=== PATIENT | male | born 1970 | race Caucasian/White ===

== ENCOUNTER 2018-05-17 19:06 | Inpatient (IN) | payer MEDICAID ==
[2014-09-19 07:59] VITALS: BMI 29.5
--- NOTE | 2018-05-17 20:07 | C.PDOC ---
History Of Present Illness 47 y/o male, with history of heroin and methadone use, presents to the ED for psychiatric evaluation. Patient states he stopped using heroin several years ago but relapsed and started using again over the past month. Patient states he is feeling depressed since he relapsed and is requesting detox. Patient denies suicidal ideation/plan or any hallucination at this time. Chief Complaint (Nursing): Psychiatric Evaluation History Per: Patient History/Exam Limitations: no limitations Onset/Duration Of Symptoms: Days Current Symptoms Are (Timing): Still Present Modifying Factor(s): Other (heroin ) Associated Symptoms: denies: Suicidal Thoughts, Suicidal Plan Involuntary Hold By: None Recent travel outside of the [place]: No Additional History Per: Patient Past Medical History Reviewed: Historical Data, Nursing Documentation, Vital Signs Vital Signs: Last Vital Signs Temp 98.7 F 05/17/18 19:26 Pulse 92 H 05/17/18 19:26 Resp 22 05/17/18 19:26 BP 139/94 H 05/17/18 19:26 Pulse Ox 99 05/17/18 19:26 - Medical History PMH: Anxiety, Arthritis, Asthma, Depression, Rheumatoid Arthritis, Sleep Apnea (Uses Cpap for sleep apnea) Denies: Chronic Kidney Disease Surgical History: No Surg Hx - [facility] Procedures CLOSURE SKIN & SUBCUTANEOUS NEC (12/21/12) SPINAL TAP (01/23/13) TETANUS TOXOID ADMINIST (12/21/12) Family History: States: Unknown Family Hx - Social History Hx Tobacco Use: No Hx Alcohol Use: No Hx Substance Use: No - Immunization History Hx Tetanus Toxoid Vaccination: Yes Hx Influenza Vaccination: No Hx Pneumococcal Vaccination: No Review Of Systems Constitutional: Negative for: Fever, Chills Cardiovascular: Negative for: Chest Pain Respiratory: Negative for: Shortness of Breath Gastrointestinal: Negative for: Nausea, Vomiting, Abdominal Pain Skin: Negative for: Rash Psych: Positive for: Depression, Other (heroin detox ). Negative for: Suicidal ideation Physical Exam - Physical Exam Appears: Non-toxic, No Acute Distress Skin: Normal Color, Warm, Dry Head: Atraumatic, Normacephalic Eye(s): bilateral: Normal Inspection, PERRL Ear(s): Bilateral: Normal Oral Mucosa: Moist Tongue: Normal Appearing Neck: Normal ROM, Supple Chest: Symmetrical Cardiovascular: Rhythm Regular Respiratory: Normal Breath Sounds, No Accessory Muscle Use Gastrointestinal/Abdominal: Soft, No Tenderness Back: No CVA Tenderness Extremity: Normal ROM Extremity: Left: Normal Color And Temperature, Normal ROM, Bilateral: Atraumatic Neurological/Psych: Oriented x3, Normal Speech, Normal Cognition, Normal Motor, Normal Sensation Gait: Steady ED Course And Treatment - Laboratory Results Result Diagrams: 05/17/18 22:01 05/17/18 22:01 O2 Sat by Pulse Oximetry: 99 (on RA) Pulse Ox Interpretation: Normal Medical Decision Making Medical Decision Making: Progress: Case discussed with warehouse production worker, who will evaluate the patient at bedside and inquire about detox beds. Patient was interviewed by Crisis and is approved for admission. Disposition Counseled Patient/Family Regarding: Studies Performed, Diagnosis, Need For F ollowup - Disposition Disposition: HOSPITALIZED Disposition Time: 23:15 Condition: STABLE Forms: [facility] ([place]an) - Clinical Impression Clinical Impression: Opioid use disorder - PA / CPR AMBULANCE DRIVER / Resident Statement MD/DO has reviewed & agrees with the documentation as recorded. - Scribe Statement The provider has reviewed the documentation as recorded by the Scribe (Lexi Calderon) All medical record entries made by the Scribe were at my direction and personally dictated by me. I have reviewed the chart and agree that the record accurately reflects my personal performance of the history, physical exam, medical decision making, and the department course for this patient. I have also personally directed, reviewed, and agree with the discharge instructions and disposition. Decision To Admit - Pt Status Changed To: Hospital Disposition Of: Inpatient - Admit Certification Admit to Inpatient:: After my assessment, the patient will require hospitalizati on for at least two midnights. This is because of the severity of symptoms shown, intensity of services needed, and/or the medical risk in this patient being treated as an outpatient. - InPatient: Physician Admission Certification: I certify that this patient requires 2 or more midnights of care for the following reason:: this patient will require more than 2 nights for detox - . Bed Request Type: Detox Admitting Physician: Brandon Mancera Patient Diagnosis: Opioid use disorder
[2018-05-17 22:05] LABS: MEAN CELL VOLUME 80.8 fL (80.0-94.0); MEAN CORPUSCULAR HEMOGLOBIN 26.8 pg (27.0-31.0); MEAN CORPUSCULAR HGB CONC 33.1 g/dL (33.0-37.0); MEAN PLATELET VOLUME 7.7 fL (7.2-11.7); RBC 5.29 Mil/uL (4.40-5.90); RED CELL DISTRIBUTION WIDTH 14.5 % (11.5-14.5); WHITE BLOOD COUNT 5.4 K/uL (4.8-10.8)
[2018-05-17 22:10] LABS: HEMOGLOBIN 14.2 g/dL (12.0-18.0)
[2018-05-17 22:21] LABS: ALB/GLOB RATIO 1.4 (1.0-2.1); ALBUMIN 4.8 g/dL (3.5-5.0); ALT/SGPT 27 U/L (21-72); AST/SGOT 30 U/L (17-59); BLOOD UREA NITROGEN 15 mg/dL (9-20); CALCIUM 9.7 mg/dl (8.6-10.4); GFR NON-AFRICAN AMERICAN > 60
[2018-05-17 22:34] LABS: BARBITURATES, UR NEGATIVE (NEGATIVE)
[2018-05-17 22:38] LABS: BENZODIAZEPINES, UR POSITIVE (NEGATIVE); OPIATES, UR POSITIVE (NEGATIVE)
[2018-05-17 23:11] LABS: PHENCYCLIDINE, UR NEGATIVE (NEGATIVE)
[2018-05-18] MEDS ORDERED: Aluminum Hydroxide/Magnesium Hydroxide Susp (30 mL) PO PRN (00:43)
--- NOTE | 2018-05-18 01:17 | PCM.BM ---
<Guevara Watkins - Last Filed: 05/18/18 01:15> Treatment Plan Problems - Problems identified on initial assessmt Problem 1 Date Initiated: 05/18/18 Time Initiated: 01:15 Assessment reference: NA Status: Active Priority: 1 Comment: Defensive Coping Problem 2 Date Initiated: 05/18/18 Time Initiated: 01:16 Assessment reference: NA Status: Active Priority: 2 Comment: Denial Treatment assets and liabiliti Patient Assests: cooperative, ADL independent Patient Liabilities: poor support system, substance abuse - Milieu Protocol Maintain good personal hygiene: daily Encourage regular showers, daily Remind patient to perform daily oral care Conduct patient checks and document Observation sheet: Q15 minutes Maintain personal safety: every shift Educate patient to report safety concerns to staff, every shift Monitor environment for contraband/sharps Medication safety: Monitor for expected outcome, potential side effects: every shift, Assess barriers to learning: every shift, Assess readiness for medication education: every shift <Shyla Olea - Last Filed: 05/19/18 11:19> Family Contact Family involvement: Famliy/SO not involved - Goals for Treatment Patient goals for treatment: COMPLETE DETOX AND APPLY FOR SHORT-TERM REHAB. Discharge/Continuing Care - Education Needs Education Needs: Patient Medication, Patient Diagnosis/Disease Process, Patient Coping Skills, Patient Anger Management skills, Patient Placement options, Patient Community resources - Discharge Discharge Criteria: No longer exhibiting s/s of withdrawal, Reduction of target symptoms Discharge to:: Substance Abuse Rehab - Treatment Team Participation Patient/Family/SO Statement: 05/19/18 11:18 "AFTER THIS, I WANNA GO TO SHORT-TERM..." Discussed with Family/SO: No Was Patient/Family/SO present at Treatment Team Meeting: Yes
--- NOTE | 2018-05-18 09:49 | PCM.PSYCH ---
Initial Psychiatric Evaluation - Initial Psychiatric Evaluation Type of Admission: Voluntary Legal Status: Capacity Chief Complaint (in patient's own words): "I need help" History of Present Illness and Precipitating Events: Pt is seen, chart reviewed and case discussed. 47 year old disabled male with 2 (adult children). Lives at home with his girlfriend. Pt currently uses 10-12 bags of Heroin (IV) per day. He last used yesterday at 4:00 PM. He currently feels anxious, confused, and disappointed in himself. Pt states that he recently dropped out of the methadone maintenance program. Pt had left over 1 methadone bottle at home and has been taking them, using heroin and methadone in the same time period. He ran out recently. Pt left the program 2 months ago. States that he relapsed after completing the program. States that he has been to detox 4 times and rehab 5 times over the past 20 years. The longest time the patient has been able to remain clean was 5 years. He has overdosed 2-3 times in his early 20s. Currently denies SI and HI but feels depressed. Psych HX: Depression and Anxiety- non compliant with medications Fam Psych Hx: Father- cocaine Medical Hx: RA, HEP- C , sarcoidosis Social:, takes girlfriend's klonopin Trauma: of family and friends Current Medications: Active Medications Generic Name Dose Route Start Last Admin Trade Name Freq PRN Reason Stop Dose Admin Al Hydrox/Mg Hydrox/Simethicone 30 ml 05/18/18 00:43 Maalox 30 Ml PO TID PRN Indigestion / Heartburn Clonidine HCl 0.1 mg 05/18/18 00:43 Catapres PO Q4 PRN COWS Score More or Equal to 5 Hydroxyzine HCl 50 mg 05/18/18 00:45 Atarax PO Q6H PRN Anxiety Ibuprofen 600 mg 05/18/18 00:43 Motrin Tab PO Q6 PRN Pain, moderate (4-7) Loperamide HCl 2 mg 05/18/18 00:43 Imodium PO Q8 PRN Diarrhea Trazodone HCl 50 mg 05/18/18 00:45 Desyrel PO HS PRN Insomnia Past Psychiatric History - Past Psychiatric History Pertinent Medical Hx (Current Medical&Sleep Prob, Allergies): Allergies Allergy/AdvReac Type Severity Reaction Status Date / Time Penicillins Allergy Mild Verified 05/17/18 19:30 Review of Systems - Psychiatric Psychiatric: Abnormal Sleep Pattern, Anhedonia, Anxiety, Depression, Difficulty Concentrating. absent: Hallucinations, Homicidal Ideation, Suicidal Ideation Mental Status Examination - Personal Presentation Personal Presentation: Looks stated age - Affect Affect: Constricted - Motor Activity Motor Activity: Calm - Reliability in Providing Information Reliability in Providing Information: Good - Speech Speech: Organized - Mood Mood: Depressed, Anxious - Formal Thought Process Formal Thought Process: No Impairment - Cognitive Functions Orientation: Person, Place, Situation, Time Sensorium: Alert Attention/Concentration: Attentive Judgement: Imparied, as evidence by: Lack of insight into illness, Intact, as evidence by: Insight regarding need for hospitalization Memory: Recent intact, as evidence by: Ability to recall events of the day, Remote intact, as evidenced by: Ability to recall historical events - Risk Risk: Withdrawal, Diminished functioning - Strength & Assets Inventory Strength & Assets Inventory: Cooperative - Limitations Limitations: Other DSM 5 DX - DSM 5 DSM 5 Diagnosis: Opioid withdrawal Opioid use d/o - severe Depressive d/o - unspecified - Recommended/Plan of Treatment Treatment Recommendations and Plan of Treatment: Taper with methadone Remeron for depression Gabapentin for augmentation if needed As needed medications All risks, benefits and alternatives of the meds discussed, and the pt agreed and understood. Attend groups and activities Supportive therapy and psychoeducation [place] for abstinence CBT for relapse prevention Encourage MAT Refer to rehab or IOP, and self-help groups Teach healthy lifestyle methods, i.e. diet, exercise, meditation Smoking cessation with [place] Nicotine patch if needed 34 min Projected ELOS: 4 days
--- NOTE | 2018-05-19 12:50 | PCM.PYCHPN ---
Psychiatric Progress Note - Psychiatric Progress Note Patient seen today, length of contact: 16 min Patient Chief Complaint: "I feel sick" Problems Identified/Issues Discussed: The pt is seen, chart reviewed, case discussed with staff. The pt is compliant with medications and reports no side-effects. Symptoms are improving but needs more time to stabilize. Pt attends groups and activities. Support given, psycho-education provided. After care discussed. Medication Change: Yes (detox changes daily) Medical Record Reviewed: Yes Mental Status Examination - Cognitive Function Orientation: Person, Place, Situation, Time Memory: Intact Attention: WNL Concentration: Poor Association: WNL Fund of Knowledge: WNL - Mood Mood: Depressed, Anxious - Affect Affect: Constricted - Speech Speech: Appropriate - Formal Thought Process Formal Thought Process: No Impairment - Suicidal Ideation Suicidal Ideation: No - Homicidal Ideation Homicidal Ideation: No Goal/Treatment Plan - Goal/Treatment Plan Need for Continued Stay: Discharge may exacerbated symptoms, Severe functional impairment Progress Toward Problem(s) and Goals/Treatment Plan: Taper with methadone Remeron for depression Gabapentin for augmentation if needed As needed medications All risks, benefits and alternatives of the meds discussed, and the pt agreed and understood. Attend groups and activities Supportive therapy and psychoeducation [place] for abstinence CBT for relapse prevention Encourage MAT Refer to rehab or IOP, and self-help groups Teach healthy lifestyle methods, i.e. diet, exercise, meditation Smoking cessation with [place] Nicotine patch if needed
--- NOTE | 2018-05-20 12:19 | PCM.PYCHPN ---
Psychiatric Progress Note - Psychiatric Progress Note Patient seen today, length of contact: 16 min Patient Chief Complaint: "I feel sick" Problems Identified/Issues Discussed: The pt is seen, chart reviewed, case discussed with staff. The pt is compliant with medications and reports no side-effects. Symptoms are improving but needs more time to stabilize. Pt attends groups and activities. Support given, psycho-education provided. After care discussed. Medication Change: Yes (detox changes daily) Medical Record Reviewed: Yes Mental Status Examination - Cognitive Function Orientation: Person, Place, Situation, Time Memory: Intact Attention: WNL Concentration: Poor Association: WNL Fund of Knowledge: WNL - Mood Mood: Depressed, Anxious - Affect Affect: Constricted - Speech Speech: Appropriate - Formal Thought Process Formal Thought Process: No Impairment - Suicidal Ideation Suicidal Ideation: No - Homicidal Ideation Homicidal Ideation: No Goal/Treatment Plan - Goal/Treatment Plan Need for Continued Stay: Discharge may exacerbated symptoms, Severe functional impairment Progress Toward Problem(s) and Goals/Treatment Plan: Taper with methadone Remeron for depression Gabapentin for augmentation if needed As needed medications All risks, benefits and alternatives of the meds discussed, and the pt agreed and understood. Attend groups and activities Supportive therapy and psychoeducation [place] for abstinence CBT for relapse prevention Encourage MAT Refer to rehab or IOP, and self-help groups Teach healthy lifestyle methods, i.e. diet, exercise, meditation Smoking cessation with [place] Nicotine patch if needed
--- NOTE | 2018-05-21 09:00 | PCM.PYCHDC ---
Mental Status Examination - Mental Status Examination Orientation: Person Discharge Summary - Discharge Note Consultations:: List each consultation separately and include: 1. Reason for request. 2. Findings. 3. Follow-up Summary of Hospital Course include:: 1. Description of specific treatment plan utilized for patients during their course of treatmen. 2. Summarize the time- course for resolution of acute symptoms and/or regressed behaviors. 3. Describe issues identified and worked on during hospitalization. 4. Describe medication utilized. 5. Describe medical problems identified and treated. 6. Reassessment of suicide risk Summary of Hospital Course: Pt is seen, chart reviewed and case discussed. 47 year old disabled male with 2 (adult children). Lives at home with his girlfriend. Pt currently uses 10-12 bags of Heroin (IV) per day. He last used yesterday at 4:00 PM. He currently feels anxious, confused, and disappointed in himself. Pt states that he recently dropped out of the methadone maintenance program. Pt had left over 1 methadone bottle at home and has been taking them, using heroin and methadone in the same time period. He ran out recently. Pt left the program 2 months ago. States that he relapsed after completing the program. States that he has been to detox 4 times and rehab 5 times over the past 20 years. The longest time the patient has been able to remain clean was 5 years. He has overdosed 2-3 times in his early 20s. Currently denies SI and HI but feels depressed. Psych HX: Depression and Anxiety- non compliant with medications Fam Psych Hx: Father- cocaine Medical Hx: RA, HEP- C , sarcoidosis Social:, takes girlfriend's klonopin Trauma: of family and friends Pt was not interested in anything - Final Diagnosis (DSM 5) Condition upon Discharge: STABLE Disposition: HOME/ ROUTINE Follow-up Treatment Plan: Taper with methadone Remeron for depression Gabapentin for augmentation if needed As needed medications All risks, benefits and alternatives of the meds discussed, and the pt agreed and understood. Attend groups and activities Supportive therapy and psychoeducation [place] for abstinence CBT for relapse prevention Encourage MAT Refer to rehab or IOP, and self-help groups Teach healthy lifestyle methods, i.e. diet, exercise, meditation Smoking cessation with [place] Nicotine patch if needed
[2018-05-21 09:21] VITALS: BP 133/92; PULSE 77; RESP 18; TEMP 97.5; O2SAT 100
== END 2018-05-21 10:54 | disposition home or self-care (01) | DRG 745 ==
LOC: C.ER 19:06 → C.7D 23:13 → C.7T 05-18 11:09 → C.7D 05-18 11:10
PROVIDERS: ADMIT Psychiatry & Neurology Psychiatry; ATTEND Psychiatry & Neurology Psychiatry
PROC: HZ52ZZZ Individual Psychotherapy for Substance Abuse Treatment, Cognitive-Behavioral (ICD-10-PCS; principal; 2018-05-17)
PROC: HZ2ZZZZ Detoxification Services for Substance Abuse Treatment (ICD-10-PCS; 2018-05-17)
PROC: HZ59ZZZ Individual Psychotherapy for Substance Abuse Treatment, Supportive (ICD-10-PCS; 2018-05-17)
PROC: HZ56ZZZ Individual Psychotherapy for Substance Abuse Treatment, Psychoeducation (ICD-10-PCS; 2018-05-17)
PROC: HZ42ZZZ Group Counseling for Substance Abuse Treatment, Cognitive-Behavioral (ICD-10-PCS; 2018-05-17)
PROC: HZ46ZZZ Group Counseling for Substance Abuse Treatment, Psychoeducation (ICD-10-PCS; 2018-05-17)
PROC: GZHZZZZ Group Psychotherapy (ICD-10-PCS; 2018-05-17)
PROC: GZ58ZZZ Individual Psychotherapy, Cognitive-Behavioral (ICD-10-PCS; 2018-05-17)
PROC: GZ56ZZZ Individual Psychotherapy, Supportive (ICD-10-PCS; 2018-05-17)
DX: F11.23 Opioid dependence with withdrawal (principal); F32.9 Major depressive disorder, single episode, unspecified; G47.30 Sleep apnea, unspecified; M06.9 Rheumatoid arthritis, unspecified; J45.909 Unspecified asthma, uncomplicated; G47.00 Insomnia, unspecified; Z91.14 Patient's other noncompliance with medication regimen; Z91.5 Personal history of self-harm; F41.9 Anxiety disorder, unspecified; Z86.19 Personal history of other infectious and parasitic diseases